=== PATIENT | female | born 1935 | race Caucasian/White ===

== ENCOUNTER 2018-12-10 13:58 | Emergency (ER) | payer MEDICARE, BC ==
--- NOTE | 2018-12-10 14:25 | EDM.PDOC ---
ED HPI GENERAL MEDICAL PROBLEM - General Chief Complaint: Lower Extremity Injury/Pain Stated Complaint: DEMENTIA PATIENT, SHE FELL 12/09/18 Time Seen by Provider: 12/10/18 14:00 Source of Information: Reports: Patient, Family History Limitations: Reports: Altered Mental Status (pt has dementia ) - History of Present Illness INITIAL COMMENTS - FREE TEXT/NARRATIVE: Patient presents to department with complaint of left hip pain. Patient fell yesterday according to the family. She is able to ambulate however shortly after the injury she began limping and it has slowly progressed over the night. This morning she has not been able to ambulate and walk. She denies having any pain or concern but pt does have advanced dementia. No other injuries or concerns noted. Family states she did not hit her head and did not lose consciousness. Onset: Gradual Quality: Reports: Throbbing Improves with: Reports: None Worsens with: Reports: None Associated Symptoms: Reports: No Other Symptoms Right Hip Pain Score (Numeric/FACES): 5 - Related Data Allergies Allergy/AdvReac Type Severity Reaction Status Date / Time adhesive tape Allergy Cannot Verified 12/10/18 14:44 Remember nalidixic acid Allergy Cannot Verified 12/10/18 14:44 Remember Home Meds: Home Meds Cholecalciferol (Vitamin D3) [Vitamin D3] 2,000 unit PO DAILY 12/10/18 [History] Furosemide [Lasix] 40 mg PO DAILY 12/10/18 [History] Levothyroxine [Synthroid] 50 mcg PO ACBREAKFAST 12/10/18 [History] Oxybutynin Chloride [Ditropan Xl] 5 mg PO DAILY 12/10/18 [History] Potassium Chloride 10 meq PO BID 12/10/18 [History] Ranitidine [Zantac] 150 mg PO DAILY PRN 12/10/18 [History] Sennosides/Docusate Sodium [Senna-S] 1 each PO Q48H 12/10/18 [History] Sertraline HCl [Zoloft] 50 mg PO DAILY 12/10/18 [History] Past Medical History Cardiovascular History: Reports: Hypertension Review of Systems - Review of Systems Review Of Systems: See Below Constitutional: Reports: No Symptoms Eyes: Reports: No Symptoms Ears: Reports: No Symptoms Nose: Reports: No Symptoms Mouth/Throat: Reports: No Symptoms Respiratory: Reports: No Symptoms Cardiovascular: Reports: No Symptoms GI/Abdominal: Reports: No Symptoms Genitourinary: Reports: No Symptoms Musculoskeletal: Reports: Other Skin: Reports: No Symptoms Neurological: Reports: No Symptoms Psychiatric: Reports: No Symptoms ED EXAM, GENERAL - Physical Exam Exam: See Below Exam Limited By: No Limitations General Appearance: Alert, WD/WN, No Apparent Distress Throat/Mouth: Normal Inspection, Normal Lips Head: Atraumatic, Normocephalic Respiratory/Chest: No Respiratory Distress, Lungs Clear, No Accessory Muscle Use , Chest Non-Tender Cardiovascular: Normal Peripheral Pulses, Regular Rate, Rhythm GI/Abdominal: Normal Bowel Sounds, Soft Back Exam: Normal Inspection, Full Range of Motion Extremities: Normal Inspection, Normal Capillary Refill, Leg Pain (right leg is shifted and rotated outward. Unble to flex or lift extremity. Severe pain with movement. ) Neurological: Alert, Oriented Psychiatric: Normal Affect, Normal Mood Skin Exam: Warm, Dry, Intact Course - Vital Signs Last Recorded V/S: Last Vital Signs Temp 36.1 C 12/10/18 14:00 Pulse 83 12/10/18 14:00 Resp 16 12/10/18 14:00 BP 159/65 H 12/10/18 14:00 Pulse Ox 98 12/10/18 14:00 - Orders/Labs/Meds Orders: Active Orders 24 hr Category Date Time Status CBC WITH AUTO DIFF [HEME] Stat Lab 12/10/18 14:15 Ordered COMPREHENSIVE METABOLIC PN,CMP [CHEM] Stat Lab 12/10/18 14:15 Ordered Sodium Chloride 0.9% [Saline Flush] Med 12/10/18 15:02 Active 10 ml FLUSH ASDIRECTED PRN Peripheral IV Insertion Adult [OM.PC] Stat Oth 12/10/18 15:02 Ordered Medication Orders Sodium Chloride (Saline Flush) 10 ml FLUSH ASDIRECTED PRN PRN Reason: Keep Vein Open Meds: Medications Generic Name Dose Route Start Last Admin Trade Name Freq PRN Reason Stop Dose Admin Sodium Chloride 10 ml 12/10/18 15:02 Saline Flush FLUSH ASDIRECTED PRN Keep Vein Open Discontinued Medications Generic Name Dose Route Start Last Admin Trade Name Freq PRN Reason Stop Dose Admin Hydromorphone HCl 1 mg 12/10/18 15:02 Dilaudid IVPUSH 12/10/18 15:03 ONETIME ONE Ondansetron HCl 4 mg 12/10/18 15:02 Zofran IVPUSH 12/10/18 15:03 ONETIME ONE Departure - Departure Time of Disposition: 15:20 Disposition: DC/Tfer to Acute Hospital 02 Condition: Good Clinical Impression: Right femoral fracture Qualifiers: Encounter type: initial encounter Femur location: unspecified portion of femur Fracture type: closed Fracture morphology: unspecified fracture morphology Qualified Code(s): S72.91XA - Unspecified fracture of right femur, initial encounter for closed fracture - Discharge Information *PRESCRIPTION DRUG MONITORING PROGRAM REVIEWED*: Not Applicable *COPY OF PRESCRIPTION DRUG MONITORING REPORT IN PATIENT SURYA: Not Applicable Forms: ED Department Discharge, Interfacility Transfer EMTALA - Problem List Review Problem List Initiated/Reviewed/Updated: Yes - My Orders Last 24 Hours: My Active Orders 12/10/18 14:15 CBC WITH AUTO DIFF [HEME] Stat COMPREHENSIVE METABOLIC PN,CMP [CHEM] Stat 12/10/18 15:02 Sodium Chloride 0.9% [Saline Flush] 10 ml FLUSH ASDIRECTED PRN Peripheral IV Insertion Adult [OM.PC] Stat - Assessment/Plan Last 24 Hours: My Active Orders 12/10/18 14:15 CBC WITH AUTO DIFF [HEME] Stat COMPREHENSIVE METABOLIC PN,CMP [CHEM] Stat 12/10/18 15:02 Sodium Chloride 0.9% [Saline Flush] 10 ml FLUSH ASDIRECTED PRN Peripheral IV Insertion Adult [OM.PC] Stat Assessment:: 1. right hip pain 2. Right femur fracture Plan: 1. X-ray completed in ER. Results reviewed with the patient 2. IV started 3. Dilaudid and zofran given for comfort 4. Consult completed with Dr. Shana Biswas who is accepting the pt as an acute transfer needing further medical management and surgical consultation. 5. Family notified and all questions and concerns addressed prior to discharge.
--- NOTE | 2018-12-10 14:46 | CR ---
[id number] RAD/RAD Pelvis 1-2V EXAM: 2 VIEWS PELVIS. INDICATION: FALL. COMPARISON: None. DISCUSSION: Acute subcapital fracture of the right femur. There is a superior and lateral displacement of the fracture fragment. No evidence of dislocation. IMPRESSION: 1. ACUTE SUBCAPITAL FRACTURE OF THE RIGHT FEMUR. Hossein Garnett DO 12/10/18 1446 Thank you for allowing us to participate in the care of your patient.
[2018-12-10] MEDS ORDERED: HYDROmorphone 1 MG/ML Syringe IVPUSH ONE (15:02)
[2018-12-10] MEDS ORDERED: Sodium Chloride 0.9% 10 ML Syringe FLUSH PRN (15:02)
[2018-12-10] MEDS ORDERED: Ondansetron 4 MG/2 ML SDV IVPUSH ONE (15:02)
[2018-12-10 16:19] LABS: CHLORIDE,CL 102 mmol/L (98-107); SODIUM,NA 142 mmol/L (136-145)
[2018-12-10 16:36] LABS: ANION GAP 10.1 mmol/L (10-20)
== END 2018-12-10 16:31 | disposition short-term general hospital (02) ==
LOC: VM.ED 13:58
DX: S72.011A Unspecified intracapsular fracture of right femur, initial encounter for closed fracture (principal); I10 Essential (primary) hypertension; Z88.8 Allergy status to other drugs, medicaments and biological substances; Z79.899 Other long term (current) drug therapy
CPT/HCPCS: 36415; 72170; 80053; 85025; 96374; 96375; 99284-25; J1170; J2405